=== PATIENT | female | born 1945 | race Caucasian/White ===

== ENCOUNTER → 2017-12-13 | Outpatient (CLI) | payer MEDICARE, OTHER ==
[~2017-12-13] MED LIST: ATOR40TA16 PO; FLUO1TAB3 PO; FLUO40CA PO; GABA300C5 PO; HYDR25TA5 PO; IBUP200T47 PO; LEVO150T7 PO
[2017-12-13 13:15] LABS: AUTOMATED NEUTROPHIL # 5.4 TH/MM3 (1.8-7.7); BASOPHIL # 0.1 TH/MM3 (0-0.2); BASOPHIL % 0.8 % (0.0-2.0); EOSINOPHIL # 0.2 TH/MM3 (0-0.4); EOSINOPHIL % 2.6 % (0.0-4.0); HEMATOCRIT 42.8 % (35.0-46.0); HEMOGLOBIN 14.7 GM/DL (11.6-15.3); LYMPH % 18.6 % (9.0-44.0); LYMPHOCYTE # 1.4 TH/MM3 (1.0-4.8); MEAN CELL VOLUME 86.5 FL (80.0-100.0); MEAN CORPUSCULAR HEMOGLOBIN 29.8 PG (27.0-34.0); MEAN CORPUSCULAR HGB CONC 34.4 % (32.0-36.0); MONO % 5.7 % (0.0-8.0); MONOCYTE # 0.4 TH/MM3 (0-0.9); NEUT % 72.3 % (16.0-70.0); PLATELET COUNT 292 TH/MM3 (150-450); RED BLOOD COUNT 4.95 MIL/MM3 (4.00-5.30); RED CELL DISTRIBUTION WIDTH 13.1 % (11.6-17.2); WHITE BLOOD COUNT 7.5 TH/MM3 (4.0-11.0)
[2017-12-13 13:19] LABS: PROTHROMBIN TIME - PATIENT 10.3 SEC (9.8-11.6)
[2017-12-13 13:33] LABS: ALBUMIN 3.6 GM/DL (3.4-5.0); ALT (GPT) 22 U/L (10-53); AST (GOT) 19 U/L (15-37); BICARBONATE 33.1 MEQ/L (21.0-32.0); BLOOD UREA NITROGEN 11 MG/DL (7-18); CHLORIDE 99 MEQ/L (98-107); GLOMERULAR FILTRATION RATE 70 ML/MIN (>89); GLUCOSE,FASTING 101 MG/DL (74-99); SODIUM (NA) 139 MEQ/L (136-145)
[2017-12-13 13:36] LABS: ALKALINE PHOSPHATASE 89 U/L (45-117); TOTAL PROTEIN 7.7 GM/DL (6.4-8.2)
--- NOTE | 2017-12-15 13:04 | EKG ---
Date Performed: 12/13/2017 Time Performed: 12:32:56 PTAGE: 72 years EKG: Normal Sinus rhythm Nonspecific T-wave flattening Nondiagnostic T-waves in inferior leads BORDERLINE ECG NO PREVIOUS TRACING DOCTOR: Madi Colby Interpretating Date/Time 12/15/2017 13:04:01
== END ==
LOC: CPRE 12:40
PROVIDERS: ATTEND Obstetrics & Gynecology Gynecologic Oncology
DX: Z01.810 Encounter for preprocedural cardiovascular examination (principal); Z01.812 Encounter for preprocedural laboratory examination; N95.0 Postmenopausal bleeding; R94.31 Abnormal electrocardiogram [ECG] [EKG]
CPT/HCPCS: 36415; 80053; 85025; 85610; 85730; 93005

== ENCOUNTER 2017-12-31 08:42 | Inpatient (IN) | payer MEDICARE, OTHER ==
[~2017-12-31] VITALS: Ht 160 cm; Wt 96.4 kg
[~2017-12-31 08:42] MED LIST changes: -FLUO1TAB3 PO
[2017-12-31] MEDS ORDERED: ceFAZolin 2 GM/DEX PREMIX 50 ML IV SCH (09:15)
[2017-12-31] MEDS ORDERED: METOPROLOL TARTRATE 25 MG TAB PO PRN (09:15)
[2017-12-31] MEDS ORDERED: SODIUM CHLORID 0.9% 500 ML IV PRN (09:15)
[2017-12-31] MEDS ORDERED: HEPARIN SODIUM - SQ 10,000 UNITS/ML VIAL SQ SCH (09:15)
[2017-12-31] MEDS ORDERED: CHLORHEXIDINE GLUCONATE 2 % 1 PACK (2 CLOTHS) TOPICAL PRN (09:15)
[2017-12-31] MEDS ORDERED: POVIDONE IODINE 5% (ANTISEPSIS KIT) 4 APPLICATIONS EACH NARE PRN (09:15)
[2017-12-31] MEDS ORDERED: LACTATED RINGER'S 1000 ML IV PRN (09:15)
[2017-12-31] MEDS ORDERED: LIDOCAINE HCL 1% PF 5 ML SYRINGE OTHER ONE (12:00)
[2017-12-31] MEDS ORDERED: PROPOFOL 200 MG/20 ML AMP IV ONE (12:00)
[2017-12-31] MEDS ORDERED: ONDANSETRON HCL 4 MG/2 ML VIAL IV ONE (12:00)
[2017-12-31] MEDS ORDERED: ROCURONIUM INJ 50 MG/5 ML SYRINGE IV PUSH ONE (12:00)
[2017-12-31] MEDS ORDERED: DEXAMETHASONE SOD PHOS 4 MG/ML VIAL IV ONE (12:00)
[2017-12-31] MEDS ORDERED: ePHEDrine/NS 25 MG/5 ML SYRINGE IV ONE (12:00)
[2017-12-31] MEDS ORDERED: PHENYLEPH/NS 1000 MCG/10 ML SYR IV ONE (12:00)
[2017-12-31] MEDS ORDERED: GLYCOPYRROLATE 1 MG/5 ML SYRINGE IV PUSH ONE (12:00)
[2017-12-31] MEDS ORDERED: ACETAMINOPHEN 1000 MG/100 ML 100 ML IV ONE (12:23)
[2017-12-31] MEDS ORDERED: LIDOCAINE 1%/EPINEPHrine 1:100,000 SOLN 20 ML VIAL INFIL ONE (15:12)
[2017-12-31] MEDS ORDERED: SUGAMMADEX SODIUM 200 MG/2 ML VIAL IV PUSH ONE (15:38)
[2017-12-31] MEDS ORDERED: oxyCODONE/ACETAMINOPHEN 5 MG/325 MG TAB PO PRN ×2 (16:45)
[2017-12-31] MEDS ORDERED: ONDANSETRON HCL 4 MG/2 ML VIAL IVP PRN (16:45)
[2017-12-31] MEDS ORDERED: NALOXONE HCL 0.4 MG/ML AMP IV PUSH PRN (16:45)
[2017-12-31] MEDS ORDERED: LORazepam 0.5 MG TAB PO PRN (16:45)
[2017-12-31] MEDS ORDERED: SODIUM CHLORIDE 0.9% FLUSH 10 ML FLUSH IV FLUSH PRN ×2 (16:45)
[2017-12-31] MEDS ORDERED: diphenhydrAMINE HCL 25 MG CAP PO PRN (16:45)
[2017-12-31] MEDS ORDERED: PILL SPLITTER OTHER PRN (17:00)
[2017-12-31] MEDS: D5-1/2 NS + KCL 20 MEQ INJ 1,000 ML IV SCH (17:00)
[2017-12-31] MEDS ORDERED: DO NOT ADM ANY ANTICOAGULANT DRUGS PRN (17:06)
[2017-12-31] MEDS ORDERED: MIDAZOLAM HCL 2 MG/2 ML VIAL ONE (17:13)
[2017-12-31] MEDS: KETOROLAC TROMETHAMINE 30 MG/ML (IVP) VIAL IVP SCH (17:35)
[2017-12-31] MEDS ORDERED: *morphine SULFATE 4 MG/ML PERIprocedure ONLY ONE (17:37)
[2017-12-31] MEDS: MORPHINE SULFATE 30 MG/30 ML PCA IV SCH (18:59)
[2017-12-31 20:00] VITALS: BP 124/66; PULSE 60; PULSE 63; RESP 16; TEMP 98.7; O2SAT 91
[2017-12-31] MEDS: LEVOTHYROXINE SODIUM 150 MCG TAB PO SCH (21:00)
[2017-12-31] MEDS: ATORVASTATIN 40 MG TAB PO SCH (21:00)
[2017-12-31] MEDS ORDERED: SODIUM CHLORIDE 0.9% FLUSH 10 ML FLUSH IV FLUSH SCH (21:00)
[2017-12-31] MEDS: SODIUM CHLORIDE 0.9% FLUSH 10 ML FLUSH IV FLUSH SCH (21:00)
[2017-12-31] MEDS: GABAPENTIN 300 MG CAP PO SCH (21:00)
[2017-12-31] MEDS: PCA - TOTAL MG MORPHINE DELIVERED PER SHIFT SCH (22:00)
[2018-01-01] VITALS (9 sets, daily range): BP systolic 101–146; BP diastolic 58–71; PULSE 56–73; RESP 16–18; TEMP 98.1–98.8; O2SAT 90–96
[2018-01-01] MEDS: KETOROLAC TROMETHAMINE 30 MG/ML (IVP) VIAL IVP SCH ×4 (00:55→18:43)
[2018-01-01] MEDS: D5-1/2 NS + KCL 20 MEQ INJ 1,000 ML IV SCH ×3 (03:23→23:00)
[2018-01-01 05:05] LABS: AUTOMATED NEUTROPHIL # 15.1 TH/MM3 (1.8-7.7); BASOPHIL % 0.1 % (0.0-2.0); HEMATOCRIT 36.8 % (35.0-46.0); HEMOGLOBIN 12.8 GM/DL (11.6-15.3); LYMPH % 2.1 % (9.0-44.0); LYMPHOCYTE # 0.3 TH/MM3 (1.0-4.8); MEAN CELL VOLUME 84.9 FL (80.0-100.0); MEAN CORPUSCULAR HEMOGLOBIN 29.5 PG (27.0-34.0); MEAN CORPUSCULAR HGB CONC 34.7 % (32.0-36.0); MEAN PLATELET VOLUME 7.8 FL (7.0-11.0); MONO % 3.2 % (0.0-8.0); MONOCYTE # 0.5 TH/MM3 (0-0.9); NEUT % 94.6 % (16.0-70.0); PLATELET COUNT 246 TH/MM3 (150-450); RED BLOOD COUNT 4.34 MIL/MM3 (4.00-5.30); RED CELL DISTRIBUTION WIDTH 12.8 % (11.6-17.2)
[2018-01-01 05:30] LABS: BICARBONATE 30.1 MEQ/L (21.0-32.0); CALCIUM 7.7 MG/DL (8.5-10.1); CREATININE 0.84 MG/DL (0.50-1.00)
[2018-01-01] MEDS: PCA - TOTAL MG MORPHINE DELIVERED PER SHIFT SCH ×3 (05:48→21:57)
--- NOTE | 2018-01-01 07:24 | HHI.PR ---
Subjective . Pt without new c/o, reports discomfort & fatigue c/w surgery Objective . afeb, vss h/h 12.8/36.8, K3.2, bun/creat 9/0.54 i/o 2420/900 alert, nad cta, rrr, soft, clean, dry no bleeding, ext nt, scds in place Assessment/Plan . pod #1 doing well in early post-op period findings, steps taken at surgery and preliminary pathology discussed q&a, she understands oob to chair, ambulate with assist, replete K dannie ybarra, seed sales manager x 24 hours Teresa Cuellar MD January 01, 2018 07:24
[2018-01-01] MEDS ORDERED: POTASSIUM BICARBONATE 25 MEQ EFFERVESCENT TAB PO ONE (07:30)
[2018-01-01] MEDS: SODIUM CHLORIDE 0.9% FLUSH 10 ML FLUSH IV FLUSH SCH ×2 (09:04→21:00)
[2018-01-01] MEDS: HYDROCHLOROTHIAZIDE 25 MG TAB PO SCH (09:05)
[2018-01-01] MEDS: FLUoxetine HCL 20 MG CAP PO SCH (09:07)
--- NOTE | 2018-01-01 09:48 | MP ---
cc: Teresa Cuellar MD, Julie MD Lastarza,Kennedy PEREYRA DATE OF OPERATION: 12/31/2017 DATE OF PROCEDURE: 12/31/2014 PREOPERATIVE DIAGNOSES: 1. Complex atypical endometrial hyperplasia. 2. Postmenopausal bleeding. 3. Markedly enlarged lobulated uterus. POSTOPERATIVE DIAGNOSES: 1. Complex atypical endometrial hyperplasia. 2. Postmenopausal bleeding. 3. Markedly enlarged lobulated uterus. PROCEDURE: Diagnostic laparoscopy, exploratory laparotomy, total abdominal hysterectomy, bilateral salpingo-oophorectomy. SURGEON: Teresa Cuellar MD AFFIRMATIVE ACTION SPECIALIST: Karan photographer assistant. ANESTHESIA: General endotracheal anesthesia. ESTIMATED BLOOD LOSS: 500 mL. URINE OUTPUT: 200 mL. IV FLUIDS: 2000 mL. INDICATIONS: This is a 72-year-old female with postmenopausal bleeding. Endometrial biopsy showed complex atypical hyperplasia with an area suspicious for endometrial cancer. Exam and imaging showed a markedly enlarged uterus with multilobulated masses radiographically suggestive of leiomyomas. She was seen and counseled in the [facility] oncology office. Options were discussed. She was in favor of definitive surgery. She was counseled regarding an estimated 50/50% likelihood that we would need to convert to laparotomy. I was uncertain if we could accomplish these goals laparoscopically due to the size and contour of the uterus. She is seen again in the preoperative holding area where these findings and plan of care are again discussed. Questions were asked and answered. She expressed good understanding and would like to move forward with surgery. FINDINGS: The uterine cavity sounded to approximately 11 cm. The uterus itself was markedly enlarged, extending to the umbilicus with multilobulated leiomyomas. At laparoscopy, it was noted that there were leiomyomas extending from essentially all surfaces of the uterus anteriorly, posteriorly on each side laterally including lower uterine segment leiomyomas that limited the mobility. Even when she was placed in Trendelenburg position, the small bowel was folded back into the abdomen with the uterine manipulator and grasper. There was not adequate exposure to the uterine vessels and there was not adequate mobility of the uterus that would allow safe dissection or safe acquisition of hemostasis and decision was made to convert to laparotomy. There were no other findings in the peritoneum in that there were no significant adhesions other than a few adhesions between the bowel and the left pelvic sidewall. The liver and diaphragm edges were smooth. The omentum, large and small bowel adjacent mesentery appeared normal. There were no peritoneal implants. There was no obvious retroperitoneal adenopathy. The uterus once removed was sent to pathology. Multiple leiomyomas were confirmed. There was no overt invasive cancer detected, possibly hyperplasia as preoperative diagnosis would suggest. If there was malignancy, it was microscopic as there was no obvious tumor, no obvious invasion. STATEMENT OF COMPLEXITY/MODIFIER: The complexity of this case was significantly increased due to the markedly enlarged uterus, certainly to weigh greater than 250 grams and modifier should be applied accordingly. PROCEDURE: She was taken to the operating room and placed in dorsal lithotomy position after general endotracheal anesthesia was administered. Timeout was undertaken. She was identified by site recognition and hospital ID bracelet and the proposed procedure was reviewed and confirmed. She was carefully positioned and padded and protected to the table in anticipation of laparoscopy robotics in the usual fashion, prepped and draped in sterile fashion, placed in lithotomy position. The cervix was grasped. Uterine cavity sounded, cervix dilated and a large VCare manipulator was inserted and secured in the usual fashion. Vernon catheter was placed in the bladder. She was returned to the low lithotomy position. Change of sterile gloves was undertaken. We confirmed that an orogastric tube was in the stomach on suction. With manual elevation of the abdominal wall and with direct laparoscopic visualization, a 5 mm cannula placed in the left upper quadrant. Carbon dioxide gas was insufflated. An atraumatic entry was confirmed. To facilitate exposure, an 8 mm cannula was placed in the right upper quadrant. She was placed in steep Trendelenburg position. The uterine manipulator was used to elevate the uterus and to try to move it through the pelvis, elevated with a blunt grasper and the uterine manipulator. The small bowel was folded back from the pelvis into the abdomen and the findings were as described above. It was felt there was inadequate visualization and that this surgery would be best approached via laparotomy. Therefore, the case was converted to laparotomy. A midline vertical incision was made from the symphysis to the umbilicus, carried down to the level of the fascia. The fascia was entered. The peritoneal cavity was entered and extended the length of the skin incision. The 2 laparoscopic cannulas were removed. The anatomy was surveyed with findings as described above. Lap pads and Bookwalter retractor were used to facilitate in surgical exposure. Left round ligament was doubly suture ligated and transected. The anterior and posterior leaves of the broad ligament were opened and the left ureter was identified. The left infundibulopelvic ligament was isolated. An opening in the peritoneum was made just below the left uteroovarian ligament and was dissected proximally to elevate the gonadal vessels as the ureter was retracted posteriorly and the left infundibulopelvic ligament was then doubly clamped, cut, and suture ligated. The initial dissection of the left vesicouterine peritoneum was carried out and the posterior peritoneum was opened to the extent possible. There were some fragile vessels along the left side of the uterus that were bleeding with small defects in the vessels. They were oversewn with interrupted 2-0 Vicryl sutures which rendered them hemostatic. Attention was then directed toward the right side where the right round ligament was doubly suture ligated, transected. The anterior and posterior leaves of the broad ligament were opened. The right ureter was identified. The right infundibulopelvic ligament was isolated. The peritoneum was opened just below the right uteroovarian ligament and dissected proximally elevating the right infundibulopelvic ligament as the ureter was dissected posteriorly. The right infundibulopelvic ligament was doubly clamped, cut, and doubly suture ligated. The posterior peritoneum was opened to the extent possible and the right vesicouterine peritoneum was dissected off the lower uterine segment and cervix and the uterine vessels were skeletonized bilaterally. The uterine vessels were clamped bilaterally and then back-clamped and the specimen was noted to cristy where the main blood supply had now been secured and uterine vessels were cut and suture ligated bilaterally. Another bleeding vessel noted just below the clamp on the left side was rendered hemostatic with 2-0 Vicryl suture. Now dissection was continued along the left side as the cardinal paracervical and uterosacral ligaments were isolated, clamped, cut, and suture ligated along the left side until a curved Gómez clamp could be placed below the cervix at the lateral vaginal angle. Attention was then directed toward the right side where the cardinal, paracervical and uterosacral ligaments were clamped, cut, and suture ligated in a stepwise fashion until the curved Gómez clamp could be placed below the cervix at the lateral vaginal angle. It was noted that all specimens were somewhat hemorrhagic and tended to bleed a bit during this dissection until this point in the case were hemostasis was rendered. Sharp dissection was used to secure the angles and they were secured with interrupted [id number] sutures and then sharp dissection was used to cut below the cervix to separate from the upper vagina. The specimen was removed, which included uterus, cervix, bilateral tubes and ovaries sent to the pathologist for preliminary histopathologic analysis with findings as described above. The vaginal cuff was secured with interrupted [id number] 0 Vicryl sutures and made completely hemostatic, well supported. Small bleeders in the peritoneum were rendered hemostatic with bipolar cautery. Pelvis and abdomen were thoroughly irrigated. The anatomy was again explored and hemostatic agent was placed across the pelvis, the vaginal cuff and pelvic sidewalls. As there was no evidence of invasive cancer, it was felt that all reasonable surgical objectives had been completed. The lap pads were removed. Bookwalter retractor was disassembled. Visual and manual inspection throughout the pelvis and abdomen surveyed the anatomy, confirmed there were no remaining foreign objects in the peritoneal cavity. Preliminary counts were correct and attention was directed toward closing. The abdominal wall was closed with a looped PDS in a running continuous modified [place] fashion, meeting in the midpoint where the sutures were tied. Subcutaneous tissue was used to reapproximate Nadir's fascia and then 3-0 Vicryl subcuticular was used to reapproximate skin edges. Steri-Strips and dry sterile dressing were placed over this incision. She was returned to lithotomy position. Pelvic exam confirmed, the vaginal cuff was well well-supported and hemostatic. There were no remaining foreign objects in the vagina. Small vaginal lacerations at the introitus and periurethral area were rendered hemostatic and reapproximated with interrupted 2-0 Vicryl sutures. Final counts were correct. She was returned to dorsal supine position and was pending reversal of anesthesia when I left the operating room to precede her to the postanesthesia care unit. MD CAILIN Blanco/GURVINDER , 09:01 AM , 09:47 AM
[2018-01-01] MEDS: LEVOTHYROXINE SODIUM 150 MCG TAB PO SCH (21:56)
[2018-01-01] MEDS: ATORVASTATIN 40 MG TAB PO SCH (21:56)
[2018-01-01] MEDS: GABAPENTIN 300 MG CAP PO SCH (21:56)
[2018-01-02] VITALS (8 sets, daily range): BP systolic 106–129; BP diastolic 58–75; PULSE 58–73; RESP 16–20; TEMP 97.4–98.1; O2SAT 90–97
[2018-01-02] MEDS: MORPHINE SULFATE 30 MG/30 ML PCA IV SCH (05:13)
[2018-01-02 05:15] LABS: HEMATOCRIT 33.5 % (35.0-46.0); HEMOGLOBIN 11.8 GM/DL (11.6-15.3); MEAN CELL VOLUME 85.5 FL (80.0-100.0); MEAN CORPUSCULAR HGB CONC 35.2 % (32.0-36.0); PLATELET COUNT 223 TH/MM3 (150-450); RED BLOOD COUNT 3.92 MIL/MM3 (4.00-5.30); RED CELL DISTRIBUTION WIDTH 12.7 % (11.6-17.2); WHITE BLOOD COUNT 13.7 TH/MM3 (4.0-11.0)
[2018-01-02 05:40] LABS: BICARBONATE 33.4 MEQ/L (21.0-32.0); CALCIUM 7.8 MG/DL (8.5-10.1); CREATININE 0.7 MG/DL (0.50-1.00)
[2018-01-02] MEDS: KETOROLAC TROMETHAMINE 30 MG/ML (IVP) VIAL IVP SCH ×2 (06:00→11:21)
[2018-01-02] MEDS: PCA - TOTAL MG MORPHINE DELIVERED PER SHIFT SCH (06:00)
--- NOTE | 2018-01-02 08:20 | PD.ONC.PN ---
Subjective Subjective Remarks POD #2 patient resting in bed states her pain in controlled she has been OOB to ambulate yesterday denies any nausea or vomiting Objective Data Date Time Temp Pulse Resp B/P (MAP) Pulse Ox O2 Delivery O2 Flow Rate FiO2 01/02/18 07:00 58 01/02/18 06:00 16 01/02/18 05:13 16 01/02/18 03:00 97.8 68 16 114/58 (76) 96 01/02/18 00:00 98.1 63 16 106/61 (76) 97 01/01/18 21:57 16 01/01/18 21:20 Nasal Cannula 2.00 01/01/18 20:30 98.1 69 16 107/59 (75) 96 01/01/18 19:00 63 01/01/18 15:45 98.8 60 18 101/58 (72) 93 01/01/18 14:00 18 01/01/18 11:30 98.5 56 18 105/58 (74) 92 01/02/18 01/02/18 01/02/18 07:00 15:00 23:00 Intake Total 325 ml Output Total 750 ml Balance -425 ml Result Diagram: 01/02/18 0500 01/02/18 0500 Laboratory Results Laboratory Tests Test 01/02/18 05:00 White Blood Count 13.7 TH/MM3 Red Blood Count 3.92 MIL/MM3 Hemoglobin 11.8 GM/DL Hematocrit 33.5 % Mean Corpuscular Volume 85.5 FL Mean Corpuscular Hemoglobin 30.0 PG Mean Corpuscular Hemoglobin Concent 35.2 % Red Cell Distribution Width 12.7 % Platelet Count 223 TH/MM3 Mean Platelet Volume 8.0 FL Blood Urea Nitrogen 9 MG/DL Creatinine 0.70 MG/DL Random Glucose 124 MG/DL Calcium Level 7.8 MG/DL Sodium Level 137 MEQ/L Potassium Level 3.1 MEQ/L Chloride Level 98 MEQ/L Carbon Dioxide Level 33.4 MEQ/L Anion Gap 6 MEQ/L Estimat Glomerular Filtration Rate 82 ML/MIN Administered Medications Medications (Trade) Dose Ordered Sig/Melba Route PRN Reason Start Time Stop Time Status Last Admin Dose Admin Lactated Ringer's 1,000 ml @ 30 mls/hr Q24H PRN IV SEE LABEL COMMENTS 12/31/17 09:15 01/03/18 09:14 12/31/17 10:00 Povidone Iodine (Betadine 5% Antisepsis Kit) 1 applic ROUTE SERVICE REPRESENTATIVE PRN EACH NARE SEE LABEL COMMENTS 12/31/17 09:15 01/03/18 09:14 12/31/17 10:00 Chlorhexidine Gluconate (Chlorhexidine 2% Cloth) 3 pack ROUTE SERVICE REPRESENTATIVE PRN TOPICAL SEE LABEL COMMENTS 12/31/17 09:15 01/03/18 09:14 12/31/17 09:40 Atorvastatin Calcium (Lipitor) 40 mg HS PO 12/31/17 21:00 01/01/18 21:56 Fluoxetine HCl (PROzac) 40 mg DAILY PO 01/01/18 09:00 01/01/18 09:07 Gabapentin (Neurontin) 300 mg HS PO 12/31/17 21:00 01/01/18 21:56 Hydrochlorothiazide (Hydrodiuril) 25 mg DAILY PO 01/01/18 09:00 01/01/18 09:05 Levothyroxine Sodium (Synthroid) 150 mcg HS PO 12/31/17 21:00 01/01/18 21:56 Potassium Chloride/Dextrose/ Sod Cl 1,000 ml @ 100 mls/hr Q10H IV 12/31/17 17:00 01/01/18 21:57 Ketorolac Tromethamine (Toradol Inj) 15 mg Q6H IVP 12/31/17 18:00 01/03/18 12:01 01/02/18 06:00 Sodium Chloride (NS Flush) 2 ml BID IV FLUSH 12/31/17 21:00 01/01/18 09:04 Objective Remarks GENERAL: Well-nourished, well-developed patient. SKIN: Warm and dry. HEAD: Normocephalic. EYES: No scleral icterus. No injection or drainage. CARDIOVASCULAR: Regular rate and rhythm without murmurs. RESPIRATORY: Breath sounds equal bilaterally. No accessory muscle use. GASTROINTESTINAL: Abdomen soft, dressing c/d/i EXTREMITIES: teds and scds MUSCULOSKELETAL: Adequate muscle tone. NEUROLOGICAL: No obvious focal deficit. Awake, alert, and oriented x3. PSYCHIATRIC: Appropriate mood and affect; insight and judgment normal. Assessment/Plan Problem List: (1) Post-operative state ICD Codes: Z98.890 - Other specified postprocedural states Status: Acute Plan: POD #2 advance diet to regular diet D/C [facility] ROOM today and change to oral medication D/C ybarra OOB to ambulate today spoke with RN and patient that if she decides she wants to go home later today then her nurse will contact our office. otherwise we will plan of discharge tomorrow. replace potassium Attending Statement Alisa Nj is in agreement with this plan. Ginna Marie January 02, 2018 08:20
[2018-01-02] MEDS ORDERED: POTASSIUM BICARBONATE 25 MEQ EFFERVESCENT TAB PO ONE ×2 (08:30→15:00)
[2018-01-02] MEDS: FLUoxetine HCL 20 MG CAP PO SCH (08:38)
[2018-01-02] MEDS: SODIUM CHLORIDE 0.9% FLUSH 10 ML FLUSH IV FLUSH SCH (08:38)
[2018-01-02] MEDS: HYDROCHLOROTHIAZIDE 25 MG TAB PO SCH (08:38)
[2018-01-02] MEDS: D5-1/2 NS + KCL 20 MEQ INJ 1,000 ML IV SCH (09:00)
[2018-01-02] MEDS ORDERED: OXYC1TAB63 PO (15:20)
--- NOTE | 2018-01-02 15:39 | HHI.DS ---
Discharge Summary Admission Date Dec 31, 2017 at 16:47 Discharge Date: January 02, 2018 Admitting Diagnosis complex endometrial hyperplasia post menopausal bleeding enlarged uterus (1) Post-menopausal bleeding ICD Codes: N95.0 - Postmenopausal bleeding (2) Endometrial hyperplasia with atypia ICD Codes: N85.02 - Endometrial intraepithelial neoplasia [EIN] Procedures Exploratory laparotomy total abdominal hysterectomy with bilateral salpingo- oophorectomy Brief History This is a 72 year old female who had an enlarged uterus with post menopausal bleeding. Biopsy confirmed complex endometrial hyperplasia with atypia. She presented for definitive surgery on 12/31/17 due to these findings. CBC/BMP: 01/02/18 0500 01/02/18 0500 Significant Findings Laboratory Tests Test 01/01/18 04:52 01/02/18 05:00 White Blood Count 16.0 TH/MM3 (4.0-11.0) 13.7 TH/MM3 (4.0-11.0) Neutrophils (%) (Auto) 94.6 % (16.0-70.0) Lymphocytes (%) (Auto) 2.1 % (9.0-44.0) Neutrophils # (Auto) 15.1 TH/MM3 (1.8-7.7) Lymphocytes # (Auto) 0.3 TH/MM3 (1.0-4.8) Random Glucose 179 MG/DL (74-106) 124 MG/DL (74-106) Calcium Level 7.7 MG/DL (8.5-10.1) 7.8 MG/DL (8.5-10.1) Potassium Level 3.2 MEQ/L (3.5-5.1) 3.1 MEQ/L (3.5-5.1) Estimat Glomerular Filtration Rate 66 ML/MIN (>89) 82 ML/MIN (>89) Red Blood Count 3.92 MIL/MM3 (4.00-5.30) Hematocrit 33.5 % (35.0-46.0) Carbon Dioxide Level 33.4 MEQ/L (21.0-32.0) PE at Discharge patient A and O X 3 in NAD head: normal cephalic atraumatic heart: RRR without MMR Lungs: CTA bilat ABD: dressing c/d/i, no abdominal distention ext: teds and scds Pt Condition on Discharge: Good Discharge Disposition: Discharge Home Discharge Instructions DIET: Follow Instructions for: As Tolerated, No Restrictions Activities you can perform: Pelvic Rest Activities to avoid: Lifting/Bending, Strenuous Activity, Driving, Sexual Activity Additional Activity Instructio: no heavy lifting/pushing or pulling > 5 pounds Follow up Referrals: Appointment for Follow Up - 2 Weeks @ [facility] New Medications: Oxycodone HCl/Acetaminophen (Oxycodone-Acetaminophen 5-325) 5 Mg-325 Mg Tablet 1 TAB PO Q4H PRN for PAIN SCALE 1 TO 5 for 7 Days, #42 TAB 0 Refills 1 tab PO Q4 hours prn/pain Continued Medications: Atorvastatin (Atorvastatin) 40 Mg Tab 40 MG PO HS for Cholesterol Management, #30 TAB 0 Refills Fluoxetine (Fluoxetine) 40 Mg Cap 40 CAP PO DAILY, #30 CAP 0 Refills Gabapentin (Gabapentin) 300 Mg Cap 300 MG PO HS, #30 CAP 0 Refills Hydrochlorothiazide (Hydrochlorothiazide) 25 Mg Tab 25 MG PO DAILY, #30 TAB 0 Refills Ibuprofen (Ibuprofen) 200 Mg Tab 200 MG PO BID for Pain Management, #1 TAB Levothyroxine (Levothyroxine) 150 Mcg Tab 150 MCG PO HS for Thyroid, #30 TAB 0 Refills Ginna Marie January 02, 2018 15:39
== END 2018-01-02 17:30 | disposition home or self-care (01) | DRG 743 ==
LOC: HSDC 08:42 → HSDI 16:47 → HCPC 18:45
PROVIDERS: ADMIT Obstetrics & Gynecology Gynecologic Oncology; ATTEND Obstetrics & Gynecology Gynecologic Oncology
PROC: 0UT20ZZ Resection of Bilateral Ovaries, Open Approach (ICD-10-PCS; 2017-12-31)
PROC: 0UT70ZZ Resection of Bilateral Fallopian Tubes, Open Approach (ICD-10-PCS; 2017-12-31)
PROC: 0WJJ4ZZ Inspection of Pelvic Cavity, Percutaneous Endoscopic Approach (ICD-10-PCS; 2017-12-31)
PROC: 0UT90ZZ Resection of Uterus, Open Approach (ICD-10-PCS; principal; 2017-12-31 12:55)
DX: N85.02 Endometrial intraepithelial neoplasia [EIN] (principal); E66.9 Obesity, unspecified; I10 Essential (primary) hypertension; D25.9 Leiomyoma of uterus, unspecified; N85.2 Hypertrophy of uterus; N95.0 Postmenopausal bleeding; E78.5 Hyperlipidemia, unspecified; E03.9 Hypothyroidism, unspecified; Z53.31 Laparoscopic surgical procedure converted to open procedure; Z68.37 Body mass index [BMI] 37.0-37.9, adult
CPT/HCPCS: 80048; 85025; 85027; 86850; 86900; 86901; 88112; 88305; 88307; 88309; 88331; 94150; J0131; J1100; J1644; J1885; J2250; J2270; J2370; J2405; J3010; J3480; J7120